=== PATIENT | female | born 1985 ===

== ENCOUNTER 2016-10-23 10:47 | Inpatient (IN) | payer MEDICAID, SELFPAY ==
[2016-10-23] MEDS ORDERED: Lactated Ringer's 1,000 ML IV SCH ×4 (10:54→13:28)
[2016-10-23] MEDS ORDERED: Oxytocin 20 units in LR 2,000 ML IV ONE (10:55)
[2016-10-23 11:00] VITALS: BMI 36.1
[2016-10-23 11:10] LABS: BASO % 0.3 % (0.0-2.0); EOS % 0.3 % (0.0-4.0); HEMATOCRIT 34.3 % (34.0-47.0); LYMPH # 4.2 K/uL (1.0-4.3); LYMPH % 44.4 % (20.0-40.0); MEAN CELL VOLUME 80.1 fl (81.0-99.0); MEAN CORPUSCULAR HEMOGLOBIN 26.2 pg (27.0-31.0); MEAN CORPUSCULAR HGB CONC 32.8 g/dL (33.0-37.0); MEAN PLATELET VOLUME 10.6 fl (7.2-11.7); MONO # 0.3 K/uL (0.0-0.8); MONO % 3.6 % (0.0-10.0); NEUT # 4.8 K/uL (1.8-7.0); NEUT % 51.4 % (50.0-75.0); NRBC % 0.3 % (0.0-0.0); RED CELL DISTRIBUTION WIDTH 36.9 % (11.5-14.5); WHITE BLOOD COUNT 9.4 K/uL (4.8-10.8)
[2016-10-23] MEDS ORDERED: Nalbuphine 20 mg/ml Inj (1 ml) IVP ONE (11:10)
[2016-10-23 11:41] VITALS: BP 106/62; PULSE 77; RESP 18; TEMP 97.7; O2SAT 99
--- NOTE | 2016-10-24 07:36 | OBHP ---
Datetime: 10/23/2016 10:48 IP Adm Impression: Term, intrauterine ; Active labor; Ruptured Membranes IP Admit Plan: Admit to unit; Initiate labor protocol Admit Comment, IP Provider: This is a 31 years old (ectopic )4 at 38w5d, ODALIS: 11/01/16 base on ultrasound done at 14w4d who presents in L _ D unit complaining of uterine contractions since this morning at 8 am associated with lower abdominal pain. Membranes ruptured few minutes after she walked in out unit. Patient denies nausea, vomiting, lightheadedness, dizziness or other complains at this evaluation. Allergies: NKDA PMHx:H/O anemia previous to current of unknown etiology OBHx: Anemia s/p Iron infusion administration 2 weeks ago SHx: no reported Social: Denies smoking, etoh and/or recreational drugs Meds: PNV, Iron supplementation O: labs:O+, Rubella: immune, Chl/GC: neg/neg, GBS: neg, HIV/RPR: neg/neg, HBsAg: neg, anti body: neg as above A: 31 y/o F with IUP at 38w5d with contractions and SROM in active labor. Plan: Admit to unit Initiate labor protocol Start IV This case has been seen and examined with Dr. Avelina Schroeder PGY1 Accounts Receivable Manager OB Hospitalist note: This pt was seen and examined by me. Agree with above note. MAHNDO Extremities - PN: Normal Lungs - PN: Normal Heart - PN: Normal Thyroid - PN: Normal Neurologic - PN: Normal HEENT - PN: Normal General - PN: Normal Membranes, Provider: Ruptured IP Hx Assessment: The History has been Reviewed and is Current Vital Signs Provider: Reviewed; Within Normal Limits IP Indication for Induction: Not Applicable IP Chief Complaint: Uterine contractions; Suspected ruptured membranes; Maternal discomfort NICHD Variability Prov Fetus A: Moderate 6-25bpm NICHD Accel Fetus A IP Provider: [id number] NICHD Decel Fetus A IP Provider: None Dilatation, Provider: 9 Effacement, Provider: 100 Station, Provider: 1 Datetime: 10/23/2016 10:45 Pelvic Type - PN: Adequate Abdomen - PN: Normal Back - PN: Normal Presentation-Admit: Vertex FHR - Baseline A Provider: 120 Contraction Comments Provider: + Comments, ACOG Physical Exam: ROS: General: no weakness; no fatigue HEENT: no OLEA; no visual dist CV: no palpitations; no no CP GI: noN/V no diarhea No epigastric pain; non radiating : no F/U/D MS: No joint pain VE by nurse: 8 cm/100 % FHR Category Provider Fetus A: Category I Genitourinary Exam: Normal DTRs - PN: Normal
--- NOTE | 2016-10-24 07:38 | OBDS ---
DELIVERY PERSONNEL Delivery Doctor: Emma Quan DO Resident: Dr. Hodges MATERNAL INFORMATION Delivery Anesthesia: None Medications in Delivery: 20 units Pitocin in 1000 ml LR Estimated Blood Loss (ml): 200 Placenta Cultured: No Maternal Complications: None Provider Comments: Delivery Note OBGYN: Dr. Quan Resident: Dr. Schroeder Dx: 38.5 wks with SROM in active labor PP D: same Procedure: ; bulb suction at perineum; The cord was clamped and cut and 3 vessels not ed, cord blood was obtained and sent to the lab. Placenta delivered spontaneously and intact. No vagi nal or perineal lacerations noted. EBL: 200cc Findings: viable male; 2945 g , :9/9 remained in room with patient. OB Hospitalist note: This pt was seen, examined and delivered with me in attendance. Agree with a steven note. ZITA LABOR SUMMARY EDC: 11/01/2016 00:00 No. Babies in Womb: 1 Attempted: No Labor Anesthesia: None LABOR INFORMATION Reason for Induction: Not Applicable Onset of Labor: 10/23/2016 10:20 Complete Dilatation: 10/23/2016 11:00 Oxytocin: N/A Group B Beta Strep: Negative Group B Beta Strep: Negative Steroids Given: None Reason Steroids Not Administered: Not Applicable MEMBRANES Membranes Rupture Method: Spontaneous Membranes Rupture Method: Spontaneous Rupture of Membranes: 10/23/2016 10:50 Rupture of Membranes: 10/22/2016 10:50 Length of Rupture (hrs): 0.25 Length of Rupture (hrs): 24.25 Amniotic Fluid Color: Clear Amniotic Fluid Color: Clear Amniotic Fluid Amount: Moderate Amniotic Fluid Amount: Moderate Amniotic Fluid Odor: Normal Amniotic Fluid Odor: Normal STAGES OF LABOR Stage 1 hrs: 0 Stage 1 min: 40 Stage 2 hrs: 0 Stage 2 min: 5 Stage 3 hrs: 0 Stage 3 min: 3 Total Time in Labor hrs: 0 Total Time in Labor min: 48 VAGINAL DELIVERY Episiotomy: None Laceration Extension: N/A Laceration Type: None Laceration Repair: Not Applicable Laceration Repair Note: No lacerations noted Initial Vag Sponge Count: 5 Final Vag Sponge Count: 5 Initial Vag Sharps Count: 0 Final Vag Sharps Count: 0 Sponge Count Correct: Yes Sharps Count Correct: N/A CSECTION DELIVERY Primary Indication: N/A Secondary Indication: N/A CSection Urgency: N/A CSection Incidence: N/A Labor: N/A Elective: N/A CSection Incision: N/A BABY A INFORMATION Delivery Date/Time: 10/23/2016 11:05 Method of Delivery: Vaginal Method of Delivery: Vaginal Born in Route : No : N/A Forceps: N/A Vacuum Extraction: N/A Shoulder Dystocia : No SHOULDER DYSTOCIA BABY A Infant Delivery Date/Time: 10/23/2016 11:05 PRESENTATION/POSITION BABY A Presentation: Cephalic Presentation: Cephalic Cephalic Presentation: Vertex Vertex Position: Left Occipital Anterior Breech Presentation: N/A PLACENTA INFORMATION BABY A Placenta Delivery Time : 10/23/2016 11:08 Placenta Method of Delivery: Spontaneous Placenta Status: Delivered SCORES BABY A Heart Rate 1 min: >100 bpm Resp Effort 1 min: Good Cry Reflex Irritability 1 min: Cough or Sneeze or Pulls Away Muscle Tone 1 min: Active Motion Color 1 min: Body [place], Extremities Blue SCORE 1 MIN: 9 Heart Rate 5 min: >100 bpm Resp Effort 5 min: Good Cry Reflex Irritability 5 min: Cough or Sneeze or Pulls Away Muscle Tone 5 min: Active Motion Color 5 min: Body [place], Extremities Blue SCORE 5 MIN: 9 INFANT INFORMATION BABY A Gestational Age at Delivery: 38.5 Gestational Status: Term Infant Outcome : Liveborn Condition : Stable Sex: Male Sex: Male IDENTIFICATION/MEDS BABY A ID Band Number: [id number] ID Band Location: Left Leg; Left Arm WEIGHT/LENGTH BABY A Birthweight (gms): 2945 Infant Weight (lb): 6 Infant Weight (oz): 8 CORD INFORMATION BABY A No. Cord Vessels: 3 Nuchal Cord : N/A Cord Blood Taken: Yes Suction: Mouth; Nose ASSESSMENT BABY A Infant Complications: None Physical Findings at Delivery: Within Normal Limits Respirations: Appears Normal Records Management Assistant/ALS Called : No Care By: DR Leon Transferred To: Remains with Mother
--- NOTE | 2016-10-24 07:38 | OBDS ---
DELIVERY PERSONNEL Delivery Doctor: Emma Quan DO Resident: Dr. Hodges MATERNAL INFORMATION Delivery Anesthesia: None Medications in Delivery: 20 units Pitocin in 1000 ml LR Estimated Blood Loss (ml): 200 Placenta Cultured: No Maternal Complications: None Provider Comments: Delivery Note OBGYN: Dr. Quan Resident: Dr. Schroeder Dx: 38.5 wks with SROM in active labor PP D: same Procedure: ; bulb suction at perineum; The cord was clamped and cut and 3 vessels not ed, cord blood was obtained and sent to the lab. Placenta delivered spontaneously and intact. No vagi nal or perineal lacerations noted. EBL: 200cc Findings: viable male; 2945 g , :9/9 remained in room with patient. OB Hospitalist note: This pt was seen, examined and delivered with me in attendance. Agree with a steven note. ZITA LABOR SUMMARY EDC: 11/01/2016 00:00 No. Babies in Womb: 1 Attempted: No Labor Anesthesia: None LABOR INFORMATION Reason for Induction: Not Applicable Onset of Labor: 10/23/2016 10:20 Complete Dilatation: 10/23/2016 11:00 Oxytocin: N/A Group B Beta Strep: Negative Steroids Given: None Reason Steroids Not Administered: Not Applicable MEMBRANES Membranes Rupture Method: Spontaneous Rupture of Membranes: 10/23/2016 10:50 Length of Rupture (hrs): 0.25 Amniotic Fluid Color: Clear Amniotic Fluid Amount: Moderate Amniotic Fluid Odor: Normal STAGES OF LABOR Stage 1 hrs: 0 Stage 1 min: 40 Stage 2 hrs: 0 Stage 2 min: 5 Stage 3 hrs: 0 Stage 3 min: 3 Total Time in Labor hrs: 0 Total Time in Labor min: 48 VAGINAL DELIVERY Episiotomy: None Laceration Extension: N/A Laceration Type: None Laceration Repair: Not Applicable Laceration Repair Note: No lacerations noted Initial Vag Sponge Count: 5 Final Vag Sponge Count: 5 Initial Vag Sharps Count: 0 Final Vag Sharps Count: 0 Sponge Count Correct: Yes Sharps Count Correct: N/A CSECTION DELIVERY Primary Indication: N/A Secondary Indication: N/A CSection Urgency: N/A CSection Incidence: N/A Labor: N/A Elective: N/A CSection Incision: N/A BABY A INFORMATION Delivery Date/Time: 10/23/2016 11:05 Method of Delivery: Vaginal Born in Route : No : N/A Forceps: N/A Vacuum Extraction: N/A Shoulder Dystocia : No SHOULDER DYSTOCIA BABY A Infant Delivery Date/Time: 10/23/2016 11:05 PRESENTATION/POSITION BABY A Presentation: Cephalic Cephalic Presentation: Vertex Vertex Position: Left Occipital Anterior Breech Presentation: N/A PLACENTA INFORMATION BABY A Placenta Delivery Time : 10/23/2016 11:08 Placenta Method of Delivery: Spontaneous Placenta Status: Delivered SCORES BABY A Heart Rate 1 min: >100 bpm Resp Effort 1 min: Good Cry Reflex Irritability 1 min: Cough or Sneeze or Pulls Away Muscle Tone 1 min: Active Motion Color 1 min: Body [place], Extremities Blue SCORE 1 MIN: 9 Heart Rate 5 min: >100 bpm Resp Effort 5 min: Good Cry Reflex Irritability 5 min: Cough or Sneeze or Pulls Away Muscle Tone 5 min: Active Motion Color 5 min: Body [place], Extremities Blue SCORE 5 MIN: 9 INFANT INFORMATION BABY A Gestational Age at Delivery: 38.5 Gestational Status: Term Outcome : Liveborn Infant Condition : Stable Sex: Male IDENTIFICATION/MEDS BABY A ID Band Number: [id number] ID Band Location: Left Leg; Left Arm WEIGHT/LENGTH BABY A Infant Birthweight (gms): 2945 Weight (lb): 6 Weight (oz): 8 CORD INFORMATION BABY A No. Cord Vessels: 3 Nuchal Cord : N/A Cord Blood Taken: Yes Suction: Mouth; Nose ASSESSMENT BABY A Infant Complications: None Physical Findings at Delivery: Within Normal Limits Infant Respirations: Appears Normal Coating Mixer Tender/ALS Called : No Care By: DR Leon Transferred To: Remains with Mother
[2016-10-24 08:24] LABS: BASO % 0.3 % (0.0-2.0); EOS % 0.7 % (0.0-4.0); HEMATOCRIT 31.7 % (34.0-47.0); LYMPH # 2.6 K/uL (1.0-4.3); LYMPH % 34.1 % (20.0-40.0); MEAN CORPUSCULAR HEMOGLOBIN 26.4 pg (27.0-31.0); MEAN CORPUSCULAR HGB CONC 31.9 g/dL (33.0-37.0); MEAN PLATELET VOLUME 10.7 fl (7.2-11.7); MONO # 0.3 K/uL (0.0-0.8); MONO % 3.8 % (0.0-10.0); NEUT # 4.6 K/uL (1.8-7.0); NEUT % 61.1 % (50.0-75.0); NRBC % 0.1 % (0.0-0.0); RED CELL DISTRIBUTION WIDTH 37.9 % (11.5-14.5); WHITE BLOOD COUNT 7.5 K/uL (4.8-10.8)
[2016-10-24 08:35] LABS: MEAN CELL VOLUME 82.7 fl (81.0-99.0)
--- NOTE | 2016-10-24 08:53 | OBPPN ---
Datetime: 10/24/2016 08:34 PP Pain Prov: Within normal limits PP Nausea Prov: Denies PP Flatus Prov: Yes PP BM Prov: No PP Breasts Prov: Normal PP Abdomen/Uterus Prov: Normal PP Lochia Prov: Normal PP Extremities Prov: Normal PP C/S Incision Prov: Not Applicable PP Progress Prov: Normal PP Impression Prov: Normal progression PP Plan Prov: Continue present management PP Progress Note Prov: PPD#1 Patient doing well day 1. Tolerating regular diet. Passing flatus, however no BM yet. She is ambulating to bathroom without difficulty. Breast and bottle feeding. O: abdomen nontender nondistended A: PPD#1 s/p with normal post progression P: follow up CBC pain control encouraged ambulation and continued . Fidel PGY1 OBH ADDENDUM: Pt seen _ examined by me. Agree with above assessment and plan. IP PP Procedures: None Vital Signs Provider PP: Reviewed; Within Normal Limits
[2016-10-24] MEDS ORDERED: Multivitamin With Minerals Tab PO SCH (09:00)
[2016-10-24] MEDS: Multivitamin With Minerals Tab PO SCH (09:02)
[2016-10-25] MEDS: Multivitamin With Minerals Tab PO SCH (08:20)
--- NOTE | 2016-10-25 09:34 | OBPPN ---
Datetime: 10/25/2016 06:51 PP Pain Prov: Within normal limits PP Nausea Prov: Denies PP Flatus Prov: Yes PP BM Prov: No PP Breasts Prov: Normal PP Heart Prov: Normal PP Lungs Prov: Normal PP Abdomen/Uterus Prov: Normal PP Lochia Prov: Normal PP Extremities Prov: Normal PP C/S Incision Prov: Not Applicable PP Progress Prov: Normal PP Comments Phys Exam Prov: Fundus is firm and below the unbilicus PP Impression Prov: Normal progression PP Plan Prov: Continue present management; Discharge PP Progress Note Prov: PPD#2 Patient doing well day 2. Tolerating regular diet. Passing flatus, however no BM yet. She is ambulating to bathroom without difficulty. Breast and bottle feeding. O: see flowsheet A: PPD#2 s/p with normal post progression P: pain control encouraged ambulation and continued . Haris Hendricks PGY1 Addendum by Dr. Rodriguez: Patient evaluated independantly by myself and I agree with the above. Patie nt is for discharge. IP PP Procedures: None Vital Signs Provider PP: Reviewed; Within Normal Limits
--- NOTE | 2016-10-25 09:36 | OBDCSUM ---
Datetime: 10/25/2016 06:56 Discharged to, Provider: Home Follow up at, Provider: pcp Disch Instr Activity: Normal activity Disch Instr Diet: Regular Discharge Instructions, Provider: Routine instructions given Discharge Diagnosis, Provider: Term Delivered Discharge Time: 10/25/2016 08:00 Follow up in weeks, Provider: 6 weeks Disch Referrals: None Disch Activity Restrictions: No sexual activity; Nothing in vagina - [place], tampons, douche Discharge Comment, Provider: 31 YO had a Delivered baby girl on 10/23/16 @ 11:05 AM 2945 g , : 9,9, Patient doing well, stable for discharge. Prescription given for pain. Encourage - PNV 1 tab PO once daily - Ibuprofen 600 mg 1 tab PO Q6 PRN pain Ambulate w/ caution, nothing in vagina, no heavy lifting, if excessive bleeding or fever without relief from Tylenol go to ED - Advised to F/U with Obgyn in 6 week and 2-3 days for with health editor or PCP. Haris Hendricks M.D. Galvanizer [employer] PGY1 Contraception after Delivery: Undecided
== END 2016-10-25 11:55 | disposition home or self-care (01) | DRG 775 ==
LOC: H.EROB2 10:47 → H.L&D 10:54 → H.OB/GYN 13:16
PROVIDERS: ADMIT Obstetrics & Gynecology; ATTEND Obstetrics & Gynecology
PROC: 10E0XZZ Delivery of Products of Conception, External Approach (ICD-10-PCS; principal; 2016-10-23)
DX: O80 Encounter for full-term uncomplicated delivery (principal); Z37.0 Single live birth; Z3A.38 38 weeks gestation of pregnancy